=== PATIENT | male | born 1960 | race Caucasian/White ===

== ENCOUNTER 2019-08-10 08:44 | Inpatient (IN) | payer MEDICAID ==
[~2019-08-10] VITALS: Ht 170.2 cm; Wt 113.9 kg
[2019-08-10 12:01] VITALS: BP 143/82
[2019-08-10] MEDS ORDERED: GABA-531 PO (12:14)
[2019-08-10] MEDS ORDERED: GLIM2TAB PO (12:14)
[2019-08-10] MEDS ORDERED: METF-960 PO (12:14)
[2019-08-10] MEDS ORDERED: ATOR20TA86 PO (12:14)
[2019-08-10] MEDS ORDERED: ASPI-989 PO (12:14)
[2019-08-10] MEDS ORDERED: GuaiFENesin/D-METHORPHAN [SUGAR-FREE] 200-20MG/10 ML SYRUP UDCUP PO PRN (13:00)
[2019-08-10] MEDS ORDERED: QUEtiapine FUMARATE 100 MG TABLET PO PRN (13:00)
[2019-08-10] MEDS ORDERED: PROMETHAZINE HCL 25 MG TABLET PO PRN (13:00)
[2019-08-10] MEDS ORDERED: LORazepam 2 MG TABLET PO PRN (13:00)
[2019-08-10] MEDS ORDERED: ACETAMINOPHEN 325 MG TABLET PO PRN (13:00)
[2019-08-10] MEDS ORDERED: TUBERCULIN, PURIFIED PROTEIN DERIVATIVE 5 TU/0.1 ML SYRINGE ID ONE (13:00)
[2019-08-10] MEDS ORDERED: MAG HYDROX/AL HYDROX/SIMETH ES 30 ML SUSPENSION UDCUP PO PRN (13:00)
[2019-08-10] MEDS ORDERED: MAGNESIUM HYDROXIDE SUSPENSION 30 ML UDCUP PO PRN (13:00)
[2019-08-10] MEDS ORDERED: LOPERAMIDE HCL 2 MG CAPSULE PO PRN (13:00)
[2019-08-10] MEDS ORDERED: HydrOXYzine PAMOATE 50 MG CAPSULE PO PRN (13:00)
[2019-08-10] MEDS ORDERED: ZOLPIDEM TARTRATE 10 MG TABLET PO PRN (13:00)
[2019-08-10] MEDS ORDERED: INFLUENZA VIRUS VACCINE QVS 2019-20 (3YR+)/PF 60 MCG/0.5 ML SYRINGE IM ONE (13:30)
[2019-08-10] MEDS ORDERED: GLUCAGON,HUMAN RECOMBINANT 1 MG VIAL IM PRN (14:15)
[2019-08-10] MEDS ORDERED: INSULIN LISPRO 100 UNITS/ML SQ PRN (14:15)
[2019-08-10 14:33] LABS: GLUCOMETER DEV NAME(LOC) BV2S.; GLUCOSE,POINT OF CARE 110 MG/DL (70-110)
[2019-08-10] MEDS: THIAMINE HCL 100 MG TABLET PO SCH (16:08)
[2019-08-10] MEDS: MetFORMIN HCL 500 MG TABLET PO SCH (16:09)
[2019-08-10 16:16] VITALS: BP 137/84
[2019-08-10] MEDS: ATORVASTATIN CALCIUM 20 MG TABLET PO SCH (20:30)
[2019-08-11 00:25] VITALS: BP 141/84
[2019-08-11 06:40] LABS: GLUCOMETER DEV NAME(LOC) BV2S.; GLUCOSE,POINT OF CARE 105 MG/DL (70-110)
[2019-08-11] MEDS: GLIMEPIRIDE 4 MG TABLET PO SCH (06:55)
[2019-08-11] MEDS: MetFORMIN HCL 500 MG TABLET PO SCH ×2 (06:55→16:49)
[2019-08-11 07:53] LABS: BASOPHILS % (AUTO) 0.5 % (0.0-2.0); EOSINOPHILS % (AUTO) 2.8 % (1.0-6.0); HEMATOCRIT 45.7 % (41-53); HEMOGLOBIN 15.7 g/dL (13.5-17.5); LYMPHOCYTES # (AUTO) 1.7 K/uL (1.0-4.8); LYMPHOCYTES % (AUTO) 23.2 % (22.0-44.0); MEAN CORPUSCULAR HEMOGLOBIN 30.9 pg (26.0-34.0); MEAN CORPUSCULAR HGB CONC 34.3 G/dL (31.0-37.0); MEAN CORPUSCULAR VOLUME 90 fL (80-100); MONOCYTES # (AUTO) 0.5 K/uL (0.1-1.0); MONOCYTES % (AUTO) 7.3 % (2.0-9.0); NEUTROPHILS # (AUTO) 4.9 K/uL (1.8-7.7); NEUTROPHILS % (AUTO) 66.2 % (40.0-70.0); PLATELET COUNT (AUTO) 200 K/uL (150-450); RED BLOOD CELL COUNT(AUTO) 5.07 MIL/uL (4.50-5.90); RED CELL DISTRIBUTION WIDTH 13.5 % (11.5-14.5)
[2019-08-11 08:15] VITALS: BP 140/79
[2019-08-11 08:18] LABS: APPEARANCE,URINE TURBID (CLEAR); GLUCOSE, URINE (UA) NEGATIVE (NEGATIVE); KETONES,URINE NEGATIVE (NEGATIVE); LEUKOCYTE ESTERASE ,URINE NEGATIVE (NEGATIVE); NITRATE,URINE NEGATIVE (NEGATIVE); OCCULT BLOOD,URINE SMALL (NEGATIVE); PROTEIN,URINE NEGATIVE (NEGATIVE)
[2019-08-11] MEDS: THIAMINE HCL 100 MG TABLET PO SCH ×2 (08:20→16:49)
[2019-08-11] MEDS: MULTIVITAMINS WITH MINERALS, THERAPEUTIC TABLET PO SCH (08:20)
[2019-08-11] MEDS: ASPIRIN 325 MG TABLET PO SCH (08:20)
[2019-08-11] MEDS: FOLIC ACID 1 MG TABLET PO SCH (08:20)
[2019-08-11 08:23] LABS: ALANINE AMINOTRANSFERASE 85 U/L (12-78); ALBUMIN 3.4 g/dL (3.4-5.0); ALKALINE PHOSPHATASE 82 U/L (46-116); ANION GAP 8 mmol/L (8-16); ASPARTATE AMINOTRANSFERASE 33 U/L (15-37); BILIRUBIN,TOTAL 0.5 mg/dL (0.1-1.0); CALCIUM, TOTAL 8.8 mg/dL (8.8-10.5); CARBON DIOXIDE 27 mmol/L (22-29); CHLORIDE 106 mmol/L (98-107); CHOL/HDL RATIO 4.8 (4.2-7.3); CHOLESTEROL 135 mg/dL (131-200); GLOMERULAR FILTR. RATE CALC > 60 mL/min (>60); GLUCOSE,RANDOM 123 mg/dL (70-110); HDL CHOLESTEROL 28 mg/dL (40-60); HEMOGLOBIN A1C 6.2 % (4.5-6.2); LDL CHOL (CALC.) 83 mg/dL (0-130); POTASSIUM 4.4 mmol/L (3.5-5.1); SODIUM SERUM 141 mmol/L (136-145); THYROID STIMULATING HORMONE 0.71 uIU/mL (0.36-3.74); TRIGLYCERIDES 120 mg/dL (15-150)
[2019-08-11 08:26] LABS: AMPHET/METH SCREEN,URINE NEGATIVE (NEGATIVE); BARBITURATE SCREEN, URINE NEGATIVE (NEGATIVE); BENZODIAZEPINES SCREEN,URINE NEGATIVE (NEGATIVE); CANNABINOID SCREEN,URINE POSITIVE (NEGATIVE); COCAINE SCREEN,URINE NEGATIVE (NEGATIVE); METHADONE SCREEN, URINE NEGATIVE (NEGATIVE); OPIATE SCREEN,URINE NEGATIVE (NEGATIVE)
[2019-08-11 08:28] LABS: PHENCYCLIDINE SCREEN,URINE NEGATIVE (NEGATIVE)
[2019-08-11 08:34] LABS: TOTAL PROTEIN, SERUM 7.2 g/dL (6.4-8.2); UREA NITROGEN, BLOOD 8 mg/dL (7-18)
[2019-08-11 08:35] LABS: BILIRUBIN,URINE PRELIM. POSITIVE (NEGATIVE)
[2019-08-11 08:36] LABS: AMORPHOUS SEDIMENT,UR Many /LPF (None Seen); BACTERIA,URINE None Seen /HPF (None Seen); WBC,URINE None Seen /HPF (0-5)
[2019-08-11] MEDS ORDERED: DULoxetine HCL 20 MG CAPSULE PO SCH (09:00)
[2019-08-11] MEDS ORDERED: NALTREXONE HCL 50 MG TABLET PO SCH (09:00)
[2019-08-11 11:03] LABS: GLUCOMETER DEV NAME(LOC) BV2S.; GLUCOSE,POINT OF CARE 116 MG/DL (70-110)
[2019-08-11 16:36] VITALS: BP 139/83
[2019-08-11] MEDS ORDERED: LORazepam 1 MG TABLET PO PRN (17:00)
[2019-08-11] MEDS ORDERED: QUEtiapine FUMARATE 25 MG TABLET PO PRN (17:00)
[2019-08-11 17:10] LABS: GLUCOMETER DEV NAME(LOC) BV2S.; GLUCOSE,POINT OF CARE 86 MG/DL (70-110)
[2019-08-11] MEDS: ATORVASTATIN CALCIUM 20 MG TABLET PO SCH (20:38)
[2019-08-11 20:44] LABS: GLUCOMETER DEV NAME(LOC) BV2S.; GLUCOSE,POINT OF CARE 94 MG/DL (70-110)
[2019-08-12 00:25] VITALS: BP 143/60
[2019-08-12 06:40] LABS: GLUCOMETER DEV NAME(LOC) BV2S.; GLUCOSE,POINT OF CARE 114 MG/DL (70-110)
[2019-08-12] MEDS: GLIMEPIRIDE 4 MG TABLET PO SCH (06:49)
[2019-08-12] MEDS: MetFORMIN HCL 500 MG TABLET PO SCH ×2 (06:50→16:50)
[2019-08-12] MEDS: FOLIC ACID 1 MG TABLET PO SCH (08:43)
[2019-08-12] MEDS: ASPIRIN 325 MG TABLET PO SCH (08:43)
[2019-08-12] MEDS: MULTIVITAMINS WITH MINERALS, THERAPEUTIC TABLET PO SCH (08:43)
[2019-08-12] MEDS: THIAMINE HCL 100 MG TABLET PO SCH ×2 (08:43→16:36)
[2019-08-12 08:44] VITALS: BP 154/89
[2019-08-12] MEDS ORDERED: DULoxetine HCL 30 MG CAPSULE PO SCH (09:00)
[2019-08-12 13:27] LABS: GLUCOMETER DEV NAME(LOC) BV2S.; GLUCOSE,POINT OF CARE 91 MG/DL (70-110)
[2019-08-12 16:09] VITALS: BP 140/97
[2019-08-12 16:46] LABS: GLUCOMETER DEV NAME(LOC) BV2S.; GLUCOSE,POINT OF CARE 96 MG/DL (70-110)
[2019-08-12] MEDS ORDERED: CLOT21CR12 TP (17:26)
[2019-08-12] MEDS: ATORVASTATIN CALCIUM 20 MG TABLET PO SCH (20:16)
[2019-08-12 20:27] LABS: GLUCOMETER DEV NAME(LOC) BV2S.; GLUCOSE,POINT OF CARE 80 MG/DL (70-110)
[2019-08-13 04:49] VITALS: BP 133/73
[2019-08-13 06:23] LABS: GLUCOMETER DEV NAME(LOC) BV2S.; GLUCOSE,POINT OF CARE 135 MG/DL (70-110)
[2019-08-13] MEDS: GLIMEPIRIDE 4 MG TABLET PO SCH (07:02)
[2019-08-13] MEDS: MetFORMIN HCL 500 MG TABLET PO SCH ×2 (07:02→16:46)
[2019-08-13 08:46] VITALS: BP 138/71
[2019-08-13] MEDS: FOLIC ACID 1 MG TABLET PO SCH (08:46)
[2019-08-13] MEDS: ASPIRIN 325 MG TABLET PO SCH (08:46)
[2019-08-13] MEDS: THIAMINE HCL 100 MG TABLET PO SCH ×2 (08:46→16:46)
[2019-08-13] MEDS: NALTREXONE HCL 50 MG TABLET PO SCH (08:46)
[2019-08-13] MEDS: MULTIVITAMINS WITH MINERALS, THERAPEUTIC TABLET PO SCH (08:46)
[2019-08-13] MEDS: CLOTRIMAZOLE 1% 15 GM CREAM TP SCH ×2 (08:49→17:31)
[2019-08-13] MEDS ORDERED: DULoxetine HCL 20 MG CAPSULE PO SCH (09:00)
[2019-08-13 11:14] LABS: GLUCOMETER DEV NAME(LOC) BV2S.; GLUCOSE,POINT OF CARE 108 MG/DL (70-110)
[2019-08-13] MEDS ORDERED: NALT50TA PO (14:57)
[2019-08-13] MEDS ORDERED: DULO20CA30 PO (14:57)
[2019-08-13 16:00] VITALS: BP 135/83
[2019-08-13 16:48] LABS: GLUCOMETER DEV NAME(LOC) BV2S.; GLUCOSE,POINT OF CARE 132 MG/DL (70-110)
[2019-08-13] MEDS: ATORVASTATIN CALCIUM 20 MG TABLET PO SCH (21:16)
[2019-08-14 00:05] VITALS: BP 132/78
[2019-08-14 06:32] LABS: GLUCOMETER DEV NAME(LOC) BV2S.; GLUCOSE,POINT OF CARE 111 MG/DL (70-110)
[2019-08-14] MEDS: GLIMEPIRIDE 4 MG TABLET PO SCH (07:03)
[2019-08-14] MEDS: MetFORMIN HCL 500 MG TABLET PO SCH (07:03)
[2019-08-14] MEDS: NALTREXONE HCL 50 MG TABLET PO SCH (08:43)
[2019-08-14] MEDS: ASPIRIN 325 MG TABLET PO SCH (08:44)
[2019-08-14] MEDS: FOLIC ACID 1 MG TABLET PO SCH (08:45)
[2019-08-14] MEDS: THIAMINE HCL 100 MG TABLET PO SCH (08:45)
[2019-08-14] MEDS: MULTIVITAMINS WITH MINERALS, THERAPEUTIC TABLET PO SCH (08:45)
[2019-08-14] MEDS: CLOTRIMAZOLE 1% 15 GM CREAM TP SCH (08:46)
[2019-08-14] MEDS ORDERED: DULoxetine HCL 30 MG CAPSULE PO SCH (09:00)
[2019-08-14] MEDS ORDERED: MULT-1239 PO (11:04)
[2019-08-14] MEDS ORDERED: FOLI1 PO (11:04)
[2019-08-14] MEDS ORDERED: THIA100T67 PO (11:04)
[2019-08-14] MEDS ORDERED: CLOT15CR62 TP (11:08)
[2019-08-14 11:17] LABS: GLUCOMETER DEV NAME(LOC) BV2S.; GLUCOSE,POINT OF CARE 100 MG/DL (70-110)
== END 2019-08-14 12:40 | disposition home or self-care (01) | DRG 751 ==
LOC: B2S 12:59
PROVIDERS: ADMIT Psychiatry & Neurology Psychiatry; ATTEND Psychiatry & Neurology Psychiatry
DX: F33.2 Major depressive disorder, recurrent severe without psychotic features (principal); R45.851 Suicidal ideations; E11.9 Type 2 diabetes mellitus without complications; E66.9 Obesity, unspecified; F12.90 Cannabis use, unspecified, uncomplicated; E78.5 Hyperlipidemia, unspecified; G47.00 Insomnia, unspecified; Z68.39 Body mass index [BMI] 39.0-39.9, adult; Z59.0 Homelessness; Z65.3 Problems related to other legal circumstances; Z63.9 Problem related to primary support group, unspecified; Z91.19 Patient's noncompliance with other medical treatment and regimen; Z91.410 Personal history of adult physical and sexual abuse; Z23 Encounter for immunization
CPT/HCPCS: 80307; 83036; 84439; 84443; 86592; 90686